=== PATIENT | female | born 1980 | race Two or more races ===

== ENCOUNTER → 2024-03-30 08:44 | Outpatient (BNVA) | payer OTHER, SELFPAY | PROVIDERS: Visit Provider Physician Assistant Medical | DX: Z13.89 Encounter for screening for other disorder (principal) | CPT/HCPCS: 99202 ==

== ENCOUNTER → 2024-04-03 14:58 | Outpatient (BNVA) | payer OTHER, SELFPAY | PROVIDERS: Visit Provider Physician Assistant Medical | DX: Z13.89 Encounter for screening for other disorder (principal) | CPT/HCPCS: 99213 ==

== ENCOUNTER → 2024-04-06 13:50 | Outpatient (BNVA) | payer OTHER, SELFPAY | PROVIDERS: Visit Provider Physician Assistant Medical | DX: Z13.89 Encounter for screening for other disorder (principal) | CPT/HCPCS: 99213 ==

== ENCOUNTER → 2024-04-13 13:59 | Outpatient (BNVA) | payer OTHER, SELFPAY | PROVIDERS: Visit Provider Physician Assistant Medical | DX: Z13.89 Encounter for screening for other disorder (principal) | CPT/HCPCS: 99213 ==

== ENCOUNTER 2025-02-09 09:04 | Outpatient (AMB) | payer OTHER, SELFPAY ==
--- OUTSIDE RECORDS SUMMARY | 2025-02-04 23:59 | XMS_ITS | Continuity of Care Document ---
Author Organization [facility] Address [address] [place] [address]- Care Team Providers Care Assistant News Director Name Role Phone Yola De León MD Primary Care Physician Encounter [facility] Date(s): 01/05/25 - 02/04/25 [facility] [address] [place], [place] [address] Encounter Type: Triage Allergies, Adverse Reactions, Alerts No Known Medication Allergies Substance Criticality Severity Reaction Reaction Severity Status Bananas throat itchy an d burning then goes to ears Active Immunizations Given and Recorded Vaccine Date Status Refusal Reason influenza virus vaccine, inactivated 04/14/24 Munir rded influenza virus vaccine, inactivated 04/28/23 Munir rded influenza virus vaccine, inactivated 1 05/26/19 Gi oliverio influenza virus vaccine, inactivated 2 05/23/18 Gi oliverio influenza virus vaccine, inactivated 3 05/12/09 Gi oliverio [id number] 12y+ bivalent booster vax 07/20/22 Recorded Influenza Virus Vaccine (oldterm) 4 04/23/22 Recor ded SARS-CoV-2 (COVID-19) mRNA BNT-162b2 vac 05/02/21 Recorded SARS-CoV-2 (COVID-19) mRNA BNT-162b2 vac 10/07/20 Recorded SARS-CoV-2 (COVID-19) mRNA BNT-162b2 vac 09/16/20 Recorded tetanus/diphtheria/pertussis, acel(Tdap) 5 02/04/18 Given influ virus vac, H1N1, inactive(oldterm) 6 05/12/09 Given diphtheria-tetanus toxoids (DT) 7 07/12/04 Given 1Result Comment: [id number] 2Result Comment: [05/23/2018] [id number] 3Admin Note: per pt 4Result Comment: Done at [facility] 5Result Comment: [02/04/2018] [facility] [id number] 6Admin Note: per pt 7Admin Note: per pt Medications Advair Diskus 500 mcg-50 mcg inhalation powder 1, puffs, Inhalation, 2 times a day, # 180 each, Refills 0, Tot. Refills 0, Maintenance, 05/17/24 3:07:00 PM EST, Powder, Route to Pharmacy Electronically, [id number], [id number], 163, cm, 05/17/24 14:52:00 EST, Height, 77.2, kg, 05/17/24 14:52:00 EST, Dry Weight Start Date: 05/17/24 Status: Ordered Quantity: 180.0 Unit: each Repeat number: 1 Albuterol (Eqv-Proventil HFA) 90 mcg/inh inhalation aerosol 1 puffs, Inhalation, Every 6 hours, PRN NEEDED FOR WHEEZING/ SHORTNESS OF BREATH, # 6.7 Gm, 2 Refills, Maintenance, 05/25/24 6:17:00 PM EST, [facility] #[id number], 163, cm, 05/17/24 14:52:00EST, Height, 77.2, kg, 05/17/24 14:52:00 EST, Dry Weight Start Date: 05/25/24 Status: Ordered Quantity: 6.7 Unit: g Repeat number: 1 Compression Stockings See Instructions, # 2 each, Maintenance, surgical, knee length 40-50 mm Hg, 12/28/23 1:20:00 PM EDT,Supply Start Date: 12/28/23 Status: Ordered Quantity: 2.0 Unit: each Repeat number: 1 Indications: Venous insufficiency (chronic) (peripheral); FLUoxetine 20 mg oral capsule 20 mg, 1, capsule, By Mouth, Daily, # 90 capsule, Refills 0, Tot. Refills 0, Maintenance, 01/05/25 6:21:00 PM EDT, Route to Pharmacy Electronically, [facility], Partial fill upon patient request if the prescription is for a schedule II opioid drug., 163, cm, 10/27/24 15:12:00 EDT, Height, 81.6, kg, 09/15/24 14:45:00 EST, Dry Weight Start Date: 01/05/25 Stop Date: 04/05/25 Status: Ordered Quantity: 90.0 Unit: capsule Repeat number: 1 fluticasone 50 mcg/inh nasal spray See Instructions, SHAKE LIQUID WELL AND USE 1 SPRAY IN EACH NOSTRIL TWICE DAILY, # 16 Gm, 3 Refills, Maintenance, 11/09/24 10:28:00 AM EDT, [id number], 30, SHAKE LIQUID WELL AND USE 1 SPRAY IN EACH NOSTRIL TWICE DAILY, 163, cm, 10/27/24 15:12:00 EDT, Height, 81.6, kg, 09/15/24 14:45:00 EST, Dry Weight Start Date: 11/09/24 Status: Ordered Quantity: 16.0 Unit: g Repeat number: 1 minoxidil 2.5 mg oral tablet 0.5 tablet = 1.25 mg, By Mouth, Daily, 0 Refills, Maintenance, 04/24/24 9:53:00 AM EDT, Partial fill upon patient request if the prescription is for a schedule II opioid drug. Start Date: 04/24/24 Status: Ordered Repeat number: 1 Nutrofol Nutrofol, Refills 0, Maintenance, 03/24/22 1:50:00 PM EDT, Supply Start Date: 03/24/22 Status: Ordered Repeat number: 1 olopatadine 0.1% ophthalmic solution See Instructions, PLACE ONE DROP INTO BOTH EYES TWICE DAILY, # 5 mL, 0 Refills, Maintenance, 08/04/24 2:35:00 PM EST, [id number], 25, PLACE ONE DROP INTO BOTH EYES TWICE DAILY, 163, cm, 07/14/24 13:19:00 EST, Height, 78.7, kg, 06/23/24 12:41:00 EST, Dry Weight Start Date: 08/04/24 Status: Ordered Quantity: 5.0 Unit: mL Repeat number: 1 Xyzal 5 mg oral tablet 1 tablet = 5 mg, By Mouth, Daily before dinner, 0 Refills, Maintenance, 03/24/22 1:49:00 PM EDT, Partial fill upon patient request if the prescription is for a schedule II opioid drug. Start Date: 03/24/22 Status: Ordered Repeat number: 1 Problem List Condition Confirmation Course Effective Dates Status Health Status Informant Allergic rhinitis Confirmed Active Asthma Confirmed Active History of DVT - on COCs Confirmed Stable 12/2008 Active Dysthymia Confirmed Active Eczema Confirmed Active Family history of colon cancer Confirmed Active LISA (generalized anxiety disorder) Confirmed Active Hypercholesterolemia Confirmed Active Inattention Confirmed Active Laxity of vagina Confirmed Active Mammogram abnormal Confirmed Active Urinary incontinence, mixed Confirmed Active Obese class I Confirmed Active Orgasm dysfunction Confirmed Active Overweight Confirmed Active Last Pap smear 10/12/12 negative with negative HPV. Status post vaginal hysterectomy, no further Pap smears needed Confirmed Active Sinusitis Confirmed Active Social History Social History Type Response Smoking Status Never smoker; Tobacc o user in household: No entered on: 04/05/17 Sex Sex Representation Female (finding) Patient Care team information Care Team Personnel Name: Sarthak COTE, Yola Castillo Position: [facility] Physician - Primary Care Member Role: PCP Address: [address] [place] [address] Adult & Pediatric [address] Telecom: Care Team Related Persons Name: ABHIJIT KNAPP Name: RADHA BORGES Insurance Providers Guarantor name: MINO KNAPP Health Plan Information #: 1 Payer: BLUE BENEFIT [employer] PPO Payer Identifier: NA Member Number: [id number] Group Number: [id number] Subscriber Identifier: [id number] Relationship to Subscriber: self Coverage Type: BLUE CROSS/BLUE SHIELD Coverage Verification Date: NA Telecom: NA Address:
--- OUTSIDE RECORDS SUMMARY | 2025-02-09 09:20 | XMS_ITS | Clinical Summary ---
Author Organization [facility] Address [address] [place], [place] [id number] Phone Care Team Providers Care Back Up Worker Name Role Phone Yola De León MD Primary Care Provider [phone]- [phone] Allergies No known active allergies Medications meclizine (ANTIVERT) 25 mg tablet Take 1 tablet (25 mg total) by mouth 3 (three) times a day as needed. 15 tablet 1 Active Additional Information Patient not taking.Reported on 10/05/2022 LORazepam (ATIVAN) 0.5 MG tablet Take 1 tablet (0.5 mg total) by mouth every 6 (six) hours as needed (vertigo). 10 tablet 1 Active Additional Information Patient not taking.Reported on 10/05/2022 escitalopram oxalate (LEXAPRO) 5 MG tablet Take 5 mg by mouth daily. 3 Active Family History Relation Status Comments Father Alive Mother Alive Social History Tobacco Use Types Packs/Day Years Used Date Smoking Tobacco: Never Smokeless Tobacco: Never Tobacco Cessation:Counseling Given: Not Answered Alcohol Use Standard Drinks/Week Comments Not Currently 0 (1 standard drink = 0.6 oz pur e alcohol) Education Answer Date Recorded Are you interested in more education? Not on yuan e 11/06/2022 Are you concerned about learning? Not on file 11/06/2022 No 11/06/2022 No 11/06/2022 Digital Access Answer Date Recorded No 12/05/2022 No 12/05/2022 No 12/05/2022 Reliable internet access at home? Not on file 12/05/2022 Device with a working camera? Not on file Comments Unknown Sex and Gender Information Value Date Recorded Sex Assigned at Not on file Legal Sex Female 12:37 PM EST Gender Identity Not on file Sexual Orientation Not on file Last Filed Vital Signs Vital Sign Reading Time Taken Comments Blood Pressure 113/68 10/05/2022 10:41 AM EDT Pulse 55 10/05/2022 10:41 AM EDT Temperature 36.6 C (97.9 F) 07/14/2020 3:56 PM EST Respiratory Rate 19 07/14/2020 3:56 PM EST Oxygen Saturation 99% 07/14/2020 3:56 PM EST Inhaled Oxygen Concentration - - Weight 70.9 kg (156 lb 3.2 oz) 10/05/2022 10:41 AM EDT Height 163.8 cm (5' 4.5 ) 10/05/2022 10:41 AM ED T Body Mass Index 26.4 10/05/2022 10:41 AM EDT Plan of Treatment Health Maintenance Due Date Last Done Comments LIPID PANEL 1978 DEPRESSION SCREENING 1990 HEPATITIS C SCREENING 1996 HIV ONE-TIME SCREENING (18-6 5 YEARS) 1996 PAP SMEAR 1999 MAMMOGRAM 2018 COLOGUARD 2023 COLONOSCOPY 2023 COLORECTAL CANCER SCREENING 2023 FIT TEST 2023 FOBT 2023 SIGMOIDOSCOPY 2023 VIRTUAL COLONOSCOPY 2023 SCREENING FOR DIABETES 07/14/2023 07/14/2020 COVID-19 VACCINE (4 - 2023-2 5 season) 2024 05/02/2021, 10/07/2020, 09/16/2020 Adult Td,Tdap Booster 02/05/2028 02/04/2018 SMOKING STATUS SCREENING (On ce After 26 Yrs) Completed 10/05/2022 HEPATITIS A VACCINES Aged Out No long er eligible based on patient's age to complete this topic HIB VACCINES Aged Out No longer eligi ble based on patient's age to complete this topic MENINGOCOCCAL VACCINES (ACWY) Aged Out No longer eligible based on patient's age to complete this topic MENINGOCOCCAL VACCINES (B) Aged Out N o longer eligible based on patient's age to complete this topic PNEUMOCOCCAL VACCINES (0-49 years) Aged Out No longer eligible b ased on patient's age to complete this topic Medical Devices Not on file Insurance O O O HMO O O HMO HMO HMO Care Teams Back Up Worker Relationship Specialty Start Date End Date Yola De León MD [address], [place] [address] PCP - General Internal Medicine 07/14/20 Additional Source Comments The information contained in this document represents components of the legal health record. It is not the complete legal health record.[facility]
--- NOTE | 2025-02-09 09:22 | MHC.OFFVIS ---
Vital Signs 02/09/25 09:25 Height 5 ft 4 in Weight 175 lb BMI 30.0 BP 112/54 L Blood Pressure Location Rt brachial Position Sitting Pulse 54 Pulse Source Pulse Oximeter Pulse Oximetry (%) 97 Oxygen Delivery Method Room Air Intake Visit Reasons: pre Colonoscopy Intake Note: Patient new consult for Colonoscopy screening. Patient cc: Pt denies any GI sx or concerns at this time. Initial colo screening. Business Quality Assurance Analyst Required: No Accompanied by: Self / Same As Patient Allergies banana Allergy (Intermediate, Verified 02/09/25 09:29) throat itchy and burning HPI HPI pre Colonoscopy: Details: 44 year old? female here today for pre colonoscopy screening.? Patient was sent to us by her PCP.? This is her first colonoscopy screening.? Patient denies any gastrointestinal symptoms in the past or at present.? Patient's mom was diagnosed with colorectal cancer in her 50s..? Denies history of difficulty with sedation or anesthesia in the past.? Negative for history of sleep apnea.? Denies any history of cardiac, renal, pulmonary, or hepatic disease.?? No history of infectious? diseases like hepatitis A, B, C, HIV or tuberculosis.? Patient is not on any anticoagulation [facility] Social History (Updated 01/11/25 @ 12:57 by Mercedes Westfall) Household Members: Family Alcohol intake: current Alcohol intake frequency: holidays/special occasions only Patient Tobacco Use Status: Never used Tobacco Review of Systems Const Denies weight gain and Denies weight loss ENT Reports no additional complaints, Denies dysphagia and Denies odynophagia Card Reports no additional complaints Resp Reports no additional complaints GI Denies abdominal pain, Denies belching, Denies melena, Denies bloating, Denies change in bowel habits, Denies dysphagia, Denies excessive flatus, Denies dyspepsia, Denies heartburn, Denies diarrhea, Denies loose stools, Denies nausea, Denies odynophagia and Denies vomiting Reports no additional complaints Musc Reports no additional complaints Neuro Reports no additional complaints Psych Reports no additional complaints Endo Reports no additional complaints Physical Exam Vital Signs: Last Vital Signs Pulse 54 02/09/25 09:25 BP 112/54 L 02/09/25 09:25 Pulse Ox 97 02/09/25 09:25 Oxygen Delivery Method Room Air 02/09/25 09:25 BMI result Body Mass Index 30.0 Const General: healthy appearing, no acute distress and well developed Nutritional Appearance: well nourished Orientation/consciousness: patient oriented x3 Resp Effort & Inspection: normal respiratory effort, able to speak in complete sentences, no tracheal deviation and symmetric chest movement Auscultation: clear to auscultation bilaterally Cardio Rate: regular rate GI Inspection: Yes normal to inspection and No distended Palpation (GI): Soft to palpation, not firm, nontender and No hepatosplenomegaly present Auscultation: normal bowel sounds General: Yes no CVA tenderness Back/Spine/Pelvis Back: no CVA tenderness Skin General skin exam: elasticity normal, turgor normal and dry skin Neuro General: patient oriented x3 Psych Appearance: grossly normal Mental Status: mental status grossly normal Assessment & Plan Assessment & Plan (1) Screen for colon cancer: Code(s): Z12.11 - Encounter for screening for malignant neoplasm of colon Plan Patient denies any GI, cardiac or respiratory symptoms.? Denies any issues with anesthesia in the past.? Denies any history of sleep apnea.? No history infectious diseases in the past or present.? Not on any anticoagulation therapy.? Family history of CRC. Patient denies melena, hematochezia, unintentional weight loss or ribbon like stools.? Discussed at length the pre-procedure,? prep, diet & medications as well as what to expect prior, during and after the procedure.?? Stressed the importance of good bowel prep.? Recommended the use of Vaseline or Calmoseptine OTC & baby wipes with bowel movements to promote comfort.? ?Patient verbalizes understanding and agrees to plan of care.? She was given the opportunity to ask questions and all questions answered.? We will see her after the procedure.? Medications: New bisacodyl (Dulcolax (bisacodyl)) take 4 tabs at noon the day before your colonoscopy 20 mg (4 x 5 mg) PO ONCE 4 tabs 0RF constipation 1 day Z12.11 - Encounter for screening for malignant neoplasm of colon polyethylene glycol 3350 (Miralax) As directed by gastroenterology department at [facility] 238 grams PO ONCE 238 grams 0RF Z12.11 - Encounter for screening for malignant neoplasm of colon Coding Level of Care Code New Pt Level 3 (64923) Diagnoses Screen for colon cancer Z12.11 Time Spent (min) 40 Comment 30 minutes spent with patient and additional 10 minutes spent reviewing her records
[2025-02-09 09:25] VITALS: BP 112/54; PULSE 54; O2SAT 97
== END 2025-02-09 10:00 | disposition home or self-care (01) ==
PROVIDERS: PCP Internal Medicine; Visit Provider Nurse Practitioner Family
DX: Z12.11 Encounter for screening for malignant neoplasm of colon (principal); Z01.818 Encounter for other preprocedural examination
CPT/HCPCS: S0285

== ENCOUNTER 2025-05-15 07:43 | Outpatient (REF) | payer OTHER, SELFPAY ==
--- OUTSIDE RECORDS SUMMARY | 2025-05-15 07:47 | XMS_ITS | Clinical Summary ---
Author Organization [facility] Address [address] [place], [place] [id number] Phone Care Team Providers Care Glass Or Mirror Inspector Name Role Phone Yola De León MD Primary Care Provider [phone]- [phone] Allergies No known active allergies Medications meclizine [...] HEPATITIS C SCREENING 1996 HIV ONE-TIME SCREENING (18-65 YEARS) 1996 PAP SMEAR 1999 MAMMOGRAM 2018 COLOGUARD 2023 COLONOSCOPY 2023 COLORECTAL CANCER SCREENING 2023 FIT TEST 2023 FOBT 2023 SIGMOIDOSCOPY 2023 VIRTUAL COLONOSCOPY 2023 SCREENING FOR DIABETES 07/14/2023 07/14/2020 INFLUENZA VACCINE (#1) 2025 2, 05/26/2019, 05/23/2018, Additional history exists COVID-19 VACCINE (2024- season) 2025 05/02/2021, 10/07/2020, 09/16/2020 Adult Td,Tdap Booster 02/05/2028 02/04/2018 SMOKING STATUS SCREENING (Once After 26 Yrs) Completed 10/05/2022 HEPATITIS A [...] (0-49 years) Aged Out No longer eligible based on patient's age to complete this topic Medical Devices Not on file Insurance HMO HMO HMO O O O HMO HMO HMO Care Teams Glass Or Mirror Inspector Relationship Specialty Start Date End Date Yola De León MD [address] [place] [address] PCP - General Internal Medicine 07/14/20 Additional Source Comments The information contained in this document represents components of the legal health record. It is not the complete legal health record.[facility]
[2025-05-15 08:50] LABS: Cholesterol 230 mg/dL (<200); HDL Cholesterol 65 mg/dL (>40); Triglycerides 54 mg/dL (<150)
== END 2025-05-15 07:44 | disposition home or self-care (01) ==
LOC: HO.LAB 07:43
PROVIDERS: PCP Internal Medicine; Visit Provider Internal Medicine
DX: Z00.00 Encounter for general adult medical examination without abnormal findings (principal); Z13.6 Encounter for screening for cardiovascular disorders; Z13.1 Encounter for screening for diabetes mellitus
CPT/HCPCS: 36415; 80061; 82947

== ENCOUNTER 2025-06-25 07:23 | Day surgery (SDC) | payer OTHER, SELFPAY ==
--- OUTSIDE RECORDS SUMMARY | 2025-05-30 23:53 | XMS_ITS | Clinical Summary ---
Author Organization [facility] Address [address] [place], [place] [address] Phone Care Team Providers Care Senior Grants Officer Name Role Phone Yola De León MD Primary Care Provider +1- [phone] Allergies No known active allergies Medications meclizine [...] on patient's age to complete this topic IPV VACCINES Aged Out No longer eligi ble [...] Medical Devices Not on file Insurance HMO O O HMO O O HMO O HMO Care Teams Senior Grants Officer Relationship Specialty Start Date End Date Yola De León MD [address], [place] [address] PCP - General Internal Medicine 07/14/20 Additional Source Comments The information contained in this document represents components of the legal health record. It is not the complete legal health record.[facility]
--- NOTE | 2025-06-21 10:21 | HO.ANESPROP2 ---
Documented by User: Nelly Colin NP 06/21/25 10:22 HPI - Anesthesia Eval Consult details Narrative: 45yo F for Colonoscopy [facility] Past Medical History Medical History Allergic rhinitis Anxiety Asthma Surgical History Surgical History H/O: hysterectomy Social History Social History Household Members: Family Alcohol intake: current Alcohol intake frequency: holidays/special occasions only Patient Tobacco Use Status: Never used Tobacco Use of substances other than those prescribed or required for medical reasons: No Are you DNR?: No Advance Directives: No Advance Directives Information Provided: Yes Patient : No (partial hyst) : No Meds Allergies Allergy/AdvReac Type Severity Reaction Status Date / Time banana Allergy Intermediate throat Verified 02/09/25 09:29 itchy and burning Home Medications ?Medication ?Instructions ?Recorded ?Confirmed ?Last Taken ?Type albuterol sulfate 90 mcg/actuation 2 puff inhalation Q6H PRN 01/11/25 06/21/25 Unknown History aerosol inhaler (Ventolin HFA) Shortness Of Breath Or Wheezing fluticasone 500 mcg-salmeterol 50 1 inh inhalation BID 01/11/25 06/21/25 Unknown History mcg/dose blistr powdr for inhalation (Advair Diskus) fluticasone propionate 50 2 spray intranasal DAILY 01/11/25 06/21/25 Unknown History mcg/actuation nasal spray,suspension minoxidil 2.5 mg tablet 1.25 mg PO DAILY 01/11/25 06/21/25 Unknown History olopatadine 0.1 % eye drops 1 drp ophthalmic (eye) BID 01/11/25 06/21/25 Unknown History Assessment and Plan Assessment Anesthesia Assessment: Chart Reviewed Documented by User: Meseret Boyle MD 06/25/25 08:10 [facility] Past Medical History Medical History Allergic rhinitis Anxiety Asthma Family History Family history of problems with anesthesia: No Surgical History Surgical History H/O: hysterectomy History of Problems with Anesthesia: No Social History Social History Household Members: Family Alcohol intake: current Alcohol intake frequency: holidays/special occasions only Patient Tobacco Use Status: Never used Tobacco Use of substances other than those prescribed or required for medical reasons: No Are you DNR?: No Advance Directives: No Advance Directives Information Provided: Yes Patient : No (partial hyst) : No Meds Allergies Allergy/AdvReac Type Severity Reaction Status Date / Time banana Allergy Intermediate throat Verified 02/09/25 09:29 itchy and burning Home Medications ?Medication ?Instructions ?Recorded ?Confirmed ?Last Taken ?Type albuterol sulfate 90 mcg/actuation 2 puff inhalation Q6H PRN 01/11/25 06/21/25 Unknown History aerosol inhaler (Ventolin HFA) Shortness Of Breath Or Wheezing fluticasone 500 mcg-salmeterol 50 1 inh inhalation BID 01/11/25 06/21/25 Unknown History mcg/dose blistr powdr for inhalation (Advair Diskus) fluticasone propionate 50 2 spray intranasal DAILY 01/11/25 06/21/25 Unknown History mcg/actuation nasal spray,suspension minoxidil 2.5 mg tablet 1.25 mg PO DAILY 01/11/25 06/21/25 Unknown History olopatadine 0.1 % eye drops 1 drp ophthalmic (eye) BID 01/11/25 06/21/25 Unknown History Exam Airway Mallampati Class: II TM Dist: >3cm Neck ROM: Full Heart: rrr Lungs: cta Assessment and Plan Assessment Anesthesia Assessment: Anesthesia Plan Discussed Final Anesthetic Review Family History of Problems with Anesthesia: No History of Problems with Anesthesia: No NPO: Yes ASA Class: II Final Preanesthetic Review: No Changes in Pt Med Stat, Meds/Allgs Chart Reviewed, Consent Obtained/Reviewed and Anes Risks/Benef Reviewed Patient Risk: Low Procedure Risk: Low Anesthetic Plan Anesthetic Plan: MAC: and Agree w/ Assess. and Plan Disposition: Standard PACU
--- NOTE | 2025-06-25 07:25 | MHC.SHP ---
Pre-Procedural Eval Section A - 24 Hr Update-Section A only Date of Service: 06/25/25 The patient is an INPATIENT: No The patient has been examined within 24 hours of the surgical procedure. The History & Physical has been completed within 30 days and I have reviewed it.: No Section B - Complete if H&P > 30 days Chief Complaint: colon cancer screening Relevant Family History (Specify if Yes): Yes Relevant Social History: None Present Medications: see Short Stay Collaborative assessment Medical History: Significant History (allergic rhinitis, asthma) History of Previous Operations: Relevant previous surgery/procedure and date(s) (Hx of hysterectomy) Allergies: Allergies Allergy/AdvReac Type Severity Reaction Status Date / Time banana Allergy Intermediate throat Verified 02/09/25 09:29 itchy and burning Review of Systems Sugical H&P ROS: Negative: Constitution, Cardiovascular, Respiratory and Gastrointestinal Exam Surgical H&P Exam: Normal: Heart, Normal: Lungs, Normal: Extremities and Normal: Abdomen Plan Diagnosis/Plan: Unchanged I have reviewed the history and physical and performed a pertinent physical examination on my patient. No changes have occurred unless specified. Time Spent With Patient Time: Total time managing care of this patient today ____ minutes.
[2025-06-25 08:04] VITALS: BP 103/55; PULSE 54; RESP 16; TEMP 36.8; O2SAT 99
[2025-06-25] MEDS: Lactated Ringers 1,000 ML 100 ML IVCONT (08:15)
--- NOTE | 2025-06-25 09:16 | HO.OPN-COLON ---
Colonoscopy Operative Note Operative Note Date of Service: 06/25/25 Narrative: COLONOSCOPY TILL CECUM WITH SNARE POLYPECTOMY AND HEMOCLIP PLACEMENT Pre-op diagnosis: Colon cancer screening (first colon), family history of colon polyps (Mom in her 50's). Post-op diagnosis:? Colon polyps Endoscopist:Reta Navas MD Anesthesia:?MAC Consent: Indications for the procedure and potential complications of bleeding, perforation, reaction to medications and missed diagnosis were discussed with the patient and informed consent was obtained. Instrument: Olympus PCF H 190 L variable stiffness pediatric colonoscope Monitoring: Vital signs and clinical assessment, intermittent blood pressure monitoring, continuous EKG monitoring, Pulse oximetry and Carbon Dioxide monitoring were done throughout the procedure. Please see anesthesia flowsheet. Colon withdrawl time was 25 minutes. Procedure: The patient was placed in the left lateral decubitis position and pre-procedure medications were administered. After a digital rectal examination of the ano-rectum, the video colonoscope was inserted into the rectum and advanced through the colon to the cecum. The colonoscope was slowly withdrawn in a retrograde panoramic fashion and the colon mucosa was carefully examined including a retroflexed view of the rectum. Findings and interventions are described below. Procedure Difficulty: without difficulty Findings: Terminal Ileum: Not evaluated Cecum: Normal Ascending Colon: A 4-5 mm sessile polyp in the proximal AC - removed with a cold snare. Two 7-8 mm sessile polyps in the distal AC - removed with a cold snare. Transverse Colon: A 15 mm flat polyp in the transverse colon. Polyp was raised with 2 cc of [place] and removed with a stiff hot snare. Polypectomy site was closed with 1 hemoclip. Descending Colon: A 4-5 mm sessile polyp - removed with a cold snare. Sigmoid Colon: Normal Rectum: Normal Ano-rectum: Normal Colon preparation: Excellent, after some irrigation. [place] Bowel Preparation Scale Right colon; 3 Transverse colon: 3 Left colon; 3 (0 = Unprepared colon segment with mucosa not seen due to solid stool that cannot be cleared. 1 = Portion of mucosa of the colon segment seen, but other areas of the colon segment not well seen due to staining, residual stool and/or opaque liquid. 2 = Minor amount of residual staining, small fragments of stool and/or opaque liquid, but mucosa of colon segment seen well. 3 = Entire mucosa of colon segment seen well with no residual staining, small fragments of stool or opaque liquid) Impression and Post Procedure Diagnosis: Colonoscopy Findings: Five small to medium sized polyps were removed Plan: I will send a letter with biopsy results. Repeat Colonoscopy in 3-5 years if polyps are adenomatous and due to family history of colon polyps Above findings were reviewed with the patient and relevant handouts were given and the discharge area.
[2025-06-25 09:22] VITALS: BP 95/85; PULSE 56; RESP 16; TEMP 36.6; O2SAT 100
[2025-06-25 09:37] VITALS: BP 108/57; PULSE 54; RESP 16; TEMP 36.6; O2SAT 100
== END 2025-06-25 10:05 | disposition home or self-care (01) ==
PROVIDERS: PCP Internal Medicine; Visit Provider Internal Medicine Gastroenterology
PROC: 0DJD8ZZ Inspection of Lower Intestinal Tract, Via Natural or Artificial Opening Endoscopic (ICD-10-PCS; CPT 45378; principal; 2025-06-25 08:30)
DX: Z12.11 Encounter for screening for malignant neoplasm of colon (principal); Z80.0 Family history of malignant neoplasm of digestive organs; D12.3 Benign neoplasm of transverse colon; D12.2 Benign neoplasm of ascending colon; D12.4 Benign neoplasm of descending colon
CPT/HCPCS: 45385; 45381; 88305; J1596; J2003; J2704

== ENCOUNTER → 2025-06-25 07:23 | Outpatient (BNV) | payer OTHER, SELFPAY | PROVIDERS: PCP Internal Medicine; Visit Provider Internal Medicine Gastroenterology | DX: Z12.11 Encounter for screening for malignant neoplasm of colon (principal); K63.5 Polyp of colon | CPT/HCPCS: 45385 ==